=== PATIENT | male | born 1985 | race Hispanic/Latino ===

== ENCOUNTER 2022-03-29 07:37 | Emergency (ER) | payer OTHER ==
[2022-03-29] MEDS ORDERED: HYDROcodone/Acetaminophen 10/325 mg Tablet ONE (08:13)
[2022-03-29] MEDS ORDERED: AMOXicillin 250 MG CAP ONE (08:14)
== END 2022-03-29 08:18 | disposition home or self-care (01) ==
LOC: BURERS 07:37
DX: K08.89 Other specified disorders of teeth and supporting structures (principal)
CPT/HCPCS: 99282